=== PATIENT | male | born 1995 | race Caucasian/White ===

== ENCOUNTER 2021-04-09 11:37 | Emergency (ER) | payer OTHER ==
[~2021-04-09 11:37] MED LIST: FLOMAX0.4 MG PO; IBUPROFEN600 MG PO; LORTAB 7.5-3251 EACH PO; LOTRIMIN CREAM45 GM TOP; TESSALON PERLE100 MG PO; ZOFRAN ODT 4 MG4 MG PO; ZOFRAN ODT 4 MG4 MG SL; ZOFRAN ODT4 MG PO; ZOFRAN4 MG PO
[2021-04-09] MEDS ORDERED: AMOXICILLIN875 MG PO (13:30)
== END 2021-04-09 13:55 | disposition home or self-care (01) ==
LOC: ER1 11:37
DX: J02.0 Streptococcal pharyngitis (principal); Z87.442 Personal history of urinary calculi; Z88.2 Allergy status to sulfonamides; Z20.822 Contact with and (suspected) exposure to COVID-19
CPT/HCPCS: 0240U; 71045; 87081; 87880; 99285

== ENCOUNTER 2021-06-16 10:56 | Emergency (ER) | payer OTHER ==
[~2021-06-16 10:56] MED LIST changes: +AMOXICILLIN875 MG PO
[2021-06-16] MEDS ORDERED: IBUPROFEN600 MG PO (16:06)
== END 2021-06-16 16:20 | disposition home or self-care (01) ==
LOC: ER1 10:56
DX: N43.3 Hydrocele, unspecified (principal); Z87.442 Personal history of urinary calculi; Z88.2 Allergy status to sulfonamides
CPT/HCPCS: 76870; 81001; 99284

== ENCOUNTER 2021-10-22 06:13 | Emergency (ER) | payer OTHER ==
[2021-10-22] MEDS ORDERED: CLEOCIN HCL300 MG PO (07:28)
== END 2021-10-22 07:35 | disposition home or self-care (01) ==
LOC: ER1 06:13
DX: K04.7 Periapical abscess without sinus (principal); Z88.2 Allergy status to sulfonamides; F17.290 Nicotine dependence, other tobacco product, uncomplicated
CPT/HCPCS: 99282

== ENCOUNTER 2022-05-06 08:12 | Emergency (ER) | payer OTHER ==
[~2022-05-06 08:12] MED LIST changes: +CLEOCIN HCL300 MG PO
[2022-05-06 09:54] LABS: HEMOGLOBIN 13.9 gm/dl (14.0-17.5); RED BLOOD COUNT 4.84 M/UL (4.20-5.50); WHITE BLOOD COUNT 9.6 K/UL (4.5-11.0)
[2022-05-06 10:15] LABS: BUN/CREATININE RATIO 11 (0-10)
[2022-05-06] MEDS ORDERED: FLOMAX 0.4 MG0.4 MG PO (10:50)
== END 2022-05-06 11:00 | disposition home or self-care (01) ==
LOC: ER1 08:12
PROVIDERS: Nurse Practitioner
DX: N20.2 Calculus of kidney with calculus of ureter (principal); Z88.2 Allergy status to sulfonamides; Z87.442 Personal history of urinary calculi
CPT/HCPCS: 80053; 81001; 85025; 87086; 96374; 99284; J1885